=== PATIENT | female | born 1995 | race Caucasian/White ===

== ENCOUNTER → 2024-03-14 | Outpatient (CLI) | payer BC ==
--- NOTE | 2024-04-12 16:29 | MR ---
Site ID synapse default Patient Camila Sandoval ID [id number] 1995 Age/Gender: 29Y, F Order # N/A Procedure MRA/MRV BRAIN WO CONTRAST Date 03/14/2024 10:54:05 AM EXAMINATION TYPE: MR brain wo con DATE OF EXAM: 03/28/2024 2:01 PM COMPARISON: MRA/MRV brain the same date. CLINICAL INDICATION: Female, 29 year old with history of migraines. TECHNIQUE: Multi planar, multi sequence imaging was performed through the brain. No gadolinium was gi jes. FINDINGS: The thomas-white junctions, ventricular system, and cisterns appear unremarkable. Scattered foci of hi gh T2/FLAIR signal intensity are seen within the subcortical white matter involving the bilateral fro ntal and parietal lobes. Largest is within the right parietal lobe measuring up to 1.1 cm. Largest wi thin the right frontal lobe measures up to 1.8 cm. Largest within the left frontal lobe measures up t o 0.8 cm. Largest within the left parietal lobe measures up to 0.6 cm. Approximately 15-20 lesions. M idline structures show no abnormality. Diffusion-weighted imaging shows no evidence of restricted dif fusion. The susceptibility weighted images do not reveal any evidence for micro-hemorrhage. The bone marrow signal is within normal limits. The paranasal sinuses and globes are unremarkable. IMPRESSION: 1. No evidence of intracranial mass or acute/subacute infarct. 2. Nonspecific bilateral frontoparietal subcortical white matter changes. Etiologies include migraine versus demyelinating disorder versus ischemic change versus other.
--- NOTE | 2024-04-12 16:29 | MR ---
Site ID synapse default Patient Camila Sandoval ID [id number] Age/Gender: 29Y, F Order # N/A Procedure MRA/MRV BRAIN WO CONTRAST Date 03/14/2024 10:54:05 AM EXAMINATION TYPE: MR MRA/MRV head wo con DATE OF EXAM: 03/28/2024 COMPARISON: MR brain of the same date HISTORY: Migraines TECHNIQUE: Time of flight images focusing on the [place] of [place] were performed without contrast.. 2-D and 3-D postprocessing imaging is performed. FINDINGS: There is no evidence for focal stenosis, large vessel occlusion, or discrete aneurysm. Th ere is no evidence of venous occlusion or collateral circulation. There is no evidence of sinus thro mbosis. IMPRESSION: 1. No evidence for focal stenosis, occlusion or aneurysm. 2. No evidence of venous sinus thrombosis.
== END | disposition home or self-care (01) ==
LOC: RADMRIMAIN 12:00
PROVIDERS: ATTEND Psychiatry & Neurology Neurology
DX: R51.9 Headache, unspecified (principal); R90.82 White matter disease, unspecified
CPT/HCPCS: 70544; 70551